=== PATIENT | male | born 1985 | race Caucasian/White ===

== ENCOUNTER → 2023-01-23 | Outpatient (CLI) | payer OTHER | END | disposition home or self-care (01) | LOC: RAH 10:35 | PROVIDERS: ATTEND Nurse Practitioner | DX: S83.282A Other tear of lateral meniscus, current injury, left knee, initial encounter (principal); M22.2X2 Patellofemoral disorders, left knee; X58.XXXA Exposure to other specified factors, initial encounter; Y93.89 Activity, other specified; Y92.89 Other specified places as the place of occurrence of the external cause; Y99.8 Other external cause status | CPT/HCPCS: 73721 ==

== ENCOUNTER 2024-12-05 13:51 | Emergency (ER) | payer OTHER ==
[~2024-12-05] VITALS: Ht 177.8 cm; Wt 90.7 kg
[2024-12-05] MEDS: ketOROlac 60 MG VIAL (30MG/ML) IM ONE (14:32)
--- NOTE | 2024-12-05 14:35 | ERN ---
ED Note History of Present Illness Stated Complaint: RIGHT BACK PAIN Chief Complaint: Shoulder Injury/Pain Time Seen by MD: 13:52 Time Seen by Midlevel: 13:52 Dictation: The patient is a 39-year-old male with no past medical history who presents to the emergency department with complaints of right shoulder pain after doing pull-ups on Wednesday. No other injuries reported. Allergies: Coded Allergies: No Known Drug Allergies (Unverified Allergy, Unknown, 12/05/24) Home Meds Active Scripts Ibuprofen (Ibuprofen) 600 Mg Tablet, 600 MG PO Q6H PRN for PAIN, #15 TAB Prov:MIKI RODRIGUEZ GENETIC PHYSICIAN 12/05/24 Past Medical History Past Medical History: No Pertinent History Surgical History: None RN Note Reviewed/Agreed w/PFSH: Yes Review of System Dictation Constitutional: Negative for fever,chills, and weight loss Eyes: Negative for injury, pain,redness, and discharge ENT: Negative for injury,pain or swelling Cardiovascular: Negative for chest pain, palpitations, and edema Respiratory: Negative for shortness of breath, cough, and wheezing, Abdomen/GI: Negative for abdominal pain, nausea, vomiting, diarrhea, and consti pation Back: Negative for injury and pain : Negative for injury, bleeding and discharge MS/Extremity: Positive for right shoulder pain Skin: Negative for rash, and discoloration Neuro: Negative for headache, weakness, numbness, tingling, and seizure Psych: Negative for suicide ideation, homicidal ideation, and hallucinations Initial Vital Sign VS Vital Signs Date Time Temp Pulse Resp B/P (MAP) Pulse Ox O2 Delivery O2 Flow Rate FiO2 12/05/24 13:58 98.1 67 20 140/97 99 Room Air 0 12/05/24 15:30 21 Physical Exam Dictation Vital Signs reviewed General Appearance: Alert, oriented x 3, no acute distress, well developed, nourished. Head and Face: non-traumatic. Eyes: PERRL, pink conjunctivas, eyelid no trauma, anterior chamber with arcus senilis. Ears: Pinnas intact and no signs of trauma or erythema ear canals clear and no discharge TM no erythema Nose: No discharge, no bleeding. Oropharynx: Mouth normal, tongue pink. pharynx clear,no erythema, tonsils no exudates, no abscesses noted, mucous membrane moist Neck: Supple, non-tender, no thyromegaly, no masses, no JVD, no bruits Breast:Deferred Chest:No tenderness, no crepitus, no paradoxical movement, no retractions Lungs:Clear, well-ventilated, symmetric, no rales, no wheezing, no rhonchi, no stridor, good breath sounds bilaterally Heart: Regular rate, regular rhythm, no murmur, no gallops Vascular: no peripheral edema, Abdomen: Soft, positive bowel sounds, nondistended, no guarding, nontender, no rebound, no masses no hepatomegaly, no splenomegaly, no Chirinos's sign, no hernias. Rectal: Deferred Genital: Deferred Neurological: Normal speech, motor function intact, sensory function intact Musculoskeletal: Neck nontender, full range of motion, back nontender, full range of motion, Extremities: nontender, full range of motion Skin: Color pink, dry, no turgor, no rash, no lacerations, no abrasions, no contusions. Lymphatic: Deferred Results (Laboratory/Radiology) Laboratory/Radiology REASON: right shoulder injury ORDERING PHYSICIAN: MIREILLE CALDERON DO PROCEDURE: SHOL 2V RT - SHOULDER COMP 2+VWS RT SHOULDER COMP 2+VWS RT HISTORY: Right shoulder injury COMPARISON: None TECHNIQUE: 2 images of right shoulder were obtained FINDINGS: There is no acute displaced fracture or dislocation. IMPRESSION: 1. Findings as described above. Labs Reviewed?: Yes ED Course ED Course Orders Procedure Category Date Status Time Ketorolac 60mg/2ml PHA 12/05/24 Complete (Toradol 60mg/2ml) 14:30 Sling JENNY 12/05/24 Complete 14:08 Shoulder Comp 2+Vws Rt RAD 12/05/24 Resulted 14:21 Current Medications Medications (Trade) Dose Ordered Sig/Shannon Route PRN Reason Start Time Stop Time Status Last Admin Dose Admin Ketorolac Tromethamine (toRADol 60MG/ 2ML) 60 mg ONCE ONCE IM 12/05/24 14:30 12/05/24 14:31 DC Vital Signs Date Time Temp Pulse Resp B/P (MAP) Pulse Ox O2 Delivery O2 Flow Rate FiO2 12/05/24 15:30 98.1 78 18 132/69 99 Room Air* 0 21 12/05/24 13:58 98.1 67 20 140/97 99 Room Air 0 Medical Decision Making MDM The patient is a 39-year-old male with no past medical history who presents to the emergency department with complaints of right shoulder pain after doing pull-ups on Wednesday. No other injuries reported. X-ray showed no acute fractures or dislocations. Patient with full range of motion to arm. Neurovascular intact will be discharged and follow up with ortho. Patient already has a referral for Dr. Ryan Differential diagnosis: Shoulder contusion, shoulder dislocation, shoulder sprain Need for hospitalization: Patient does not meet criteria for hospitalization. There are no social concerns with this patient. DX & DISP Disposition: Discharge Departure Impression: Primary Impression: Right shoulder pain Additional Impression: Right shoulder strain Condition: Stable Scripts Ibuprofen (Ibuprofen) 600 Mg Tablet 600 MG PO Q6H PRN for PAIN, #15 TAB Prov: MIKI RODRIGUEZ 12/05/24 Additional Instructions: Please follow up with your orthopedic. Avoid any physical activity that can exacerbate your symptoms. Rest your arm. You may take ibuprofen as needed for the pain. FOLLOW-UP WITH PRIMARY CARE PROVIDER IN 1 TO 2 DAYS. TAKE MEDICATIONS DIRECTED HERE IN THE EMERGENCY ROOM. OKAY TO CONTINUE HOME MEDICATIONS UNLESS OTHERWISE DISCUSSED DURING YOUR VISIT IN THE EMERGENCY ROOM TODAY. RETURN TO YOUR NEAREST EMERGENCY ROOM IF SYMPTOMS WORSEN OR IF THERE IS NO IMPROVEMENT. CALL 911 IF YOU NEED IMMEDIATE ASSISTANCE. TAKE TYLENOL OR MOTRIN [id number] TER NEEDED AND IF NO CONTRAINDICATIONS ARE PRESENT. INCREASE ORAL HYDRATION. A WOUND CULTURE OR URINE CULTURE WAS ORDERED HERE IN THE EMERGENCY ROOM DEPARTMENT PLEASE FOLLOW-UP WITH PRIMARY CARE PROVIDER AND ADVISE THEM TO GET REPEAT PORTS FROM OUR FACILITY. IF YOU HAD ANY AUDELIA WRAP/SPLINTS THAT WERE APPLIED HERE, PLEASE DO NOT REMOVE THEM UNTIL YOU SEE YOUR PRIMARY CARE OR SP ECIALTY. Referrals: [facility] (PCP) SHWETHA RYAN MD I have examined patient, & reviewed all documents, & agreed W/ the Diagnosis, and Plan MIKI RODRIGUEZ Dec 05, 2024 14:35 MIREILLE CALDERON DO Dec 07, 2024 10:21
--- NOTE | 2024-12-05 14:55 | HMCIMG ---
SHOULDER COMP 2+VWS RT HISTORY: Right shoulder injury COMPARISON: None TECHNIQUE: 2 images of right shoulder were obtained FINDINGS: There is no acute displaced fracture or dislocation. IMPRESSION: 1. Findings as described above.
[2024-12-05] MEDS ORDERED: IBUP-2070 PO (15:11)
[2024-12-05 15:30] VITALS: BP 132/69; PULSE 78; RESP 18; TEMP 98; O2SAT 99
== END 2024-12-05 15:37 | disposition home or self-care (01) ==
LOC: EDH 13:51
DX: S46.911A Strain of unspecified muscle, fascia and tendon at shoulder and upper arm level, right arm, initial encounter (principal); M25.511 Pain in right shoulder; X58.XXXA Exposure to other specified factors, initial encounter; Y93.89 Activity, other specified; Y92.89 Other specified places as the place of occurrence of the external cause; Y99.8 Other external cause status
CPT/HCPCS: 29105; 73030; 99283; J1885